=== PATIENT | female | born 1955 | race Caucasian/White ===

== ENCOUNTER → 2016-09-06 | Outpatient (CLI) | payer MEDICARE ==
[~2016-09-06] VITALS: Ht 167.6 cm; Wt 69.1 kg
[~2016-09-06] MED LIST: AMBIEN5 M1 PO; AMBIEN5 MG PO; ASPIR-TRIN325 M1 PO; AUGMENTIN875 MG PO; Ambien PO; CALCIUM + VITA1 EAC2 PO; CALCIUM 600 +1 EAC6 PO; CEFDINIR300 MG PO; CELEBREX200 MG PO; CLEOCIN300 MG PO; CYANOCOBAL1000 MCG/2 IM; Cipro PO; DAILY MULTIPLE1 EACH PO; DESYREL 150 MG150 MG PO; DIGOX250 MCG PO; DIGOXIN125 MCG PO; DOCUSATE SODIU100 MG PO; DURAGESIC100 MCG PO; DURAGESIC100 MCG TD; Duragesic TD; Ecotrin PO; FENTORA PO; FENTORA100 MCG BC; FENTORA400 MCG BC; FERROUS SULFAT325 MG PO; GUMMI BEAR MUL1 EACH PO; HAIR-SKIN-NAIL1 EACH PO; IRON325 M1 PO; K-DUR10 MEQ PO; KEFLEX500 MG PO; LASIX20 MG PO; LEVOTHROID,S0.075 MG PO; LEVOTHYROXINE75 MCG PO; LORAZEPAM0.5 MG PO; LYRICA50 MG PO; LYRICA75 MG PO; Lasix PO; Levothroid,Synthroid PO; MULTIVITAMIN1 EAC2 PO; NUVIGIL250 MG PO; ONE DAILY MULT1 EACH PO; OXYCOD/APAP PO; OYST-CAL-500500 MG PO; PANTOPRAZOLE SO40 MG PO; POTASSIUM CHLO10 ME4 PO; POTASSIUM CHLO20 ME1 PO; PREDNISONE10 MG PO; PREDNISONE20 MG PO; PREDNISONE50 MG PO; PREVACID30 MG PO; Percocet 5/325,Endoc PO; Pyridoxine,Vitamin B PO; ST JOHN S WORT PO; ST. JOSEPH ASPI81 MG PO; SYNTHROID75 MCG PO; TRAMADOL HCL50 MG PO; TRAZODONE HCL50 MG PO; ULTRAM ER100 MG PO; ULTRAM50 MG PO; Ultram PO; VITAMIN B 3 PO; VITAMIN B 6 PO; VITAMIN B IM; VITAMIN B3 PO; VITAMIN E100 UNI1 PO; VITAMIN E100 UNIT PO; VITAMIN E1000 UNI1 PO; Vitamin B-12 PO; ZANTAC150 MG PO; [UNRECOGNIZED DRUG - OTHER] IM; [UNRECOGNIZED DRUG - OTHER] PO; [UNRECOGNIZED DRUG - OTHER] PO
[2016-09-06 19:16] VITALS: BP 95/57
[2016-09-06 21:35] LABS: ANION GAP 7 MEQ/L (2-14); CHLORIDE 100 MEQ/L (99-109); HEMATOCRIT 29.8 % (36.0-46.0); MCV 83.9 FL (83-99); POTASSIUM 4.3 MEQ/L (3.7-5.4); SAMPLE HEMOLYSIS CHECK 0; SAMPLE ICTERIC CHECK 0; SAMPLE LIPEMIA CHECK 0; SODIUM 133 MEQ/L (136-147)
[2016-09-06 21:40] LABS: GFR ESTIMATE (CALCULATED) > 59 mL/min/; GLUCOSE 89 mg/dL (70-99); UREA NITROGEN (BUN) 12 mg/dL (9-23)
== END | disposition home or self-care (01) ==
LOC: IVINF 19:00
PROVIDERS: Family Medicine
DX: E88.09 Other disorders of plasma-protein metabolism, not elsewhere classified (principal); R60.9 Edema, unspecified; Z88.4 Allergy status to anesthetic agent; Z88.1 Allergy status to other antibiotic agents
CPT/HCPCS: 80048; 85014; 85018; 96365; 96374 59; J1940; P9047

== ENCOUNTER 2016-09-30 21:00 | Emergency (ER) | payer MEDICARE ==
[~2016-09-30] VITALS: Ht 170.2 cm; Wt 71.3 kg
[2016-10-01 00:12] LABS: EOSINOPHIL (%) 0.3 % (0-5); HEMATOCRIT 27.1 % (36.0-46.0); IMMATURE GRANULOCYTE (%) 0.3 % (0.0-0.7); IMMATURE GRANULOCYTE COUNT 0.5 K/uL; LYMPHOCYTE COUNT 0.4 K/uL (1.0-2.8); MCH 25.5 PG (29.0-34.0); MCHC 31.4 G/DL (30.0-36.0); MCV 81.4 FL (83-99); MEAN PLAT.VOLUME 8.2 uM^3 (9.5-12.4); MONOCYTE (%) 6.6 % (3-12); NEUTROPHIL (%) 89.8 % (45-76); NEUTROPHIL COUNT 13.4 K/uL (1.8-6.4); PLATELET COUNT 360 K/uL (156-360); RBC DIS.WIDTH-CV 15.9 % (11.8-14.6); RED BLOOD COUNT 3.33 M/uL (3.80-5.20)
[2016-10-01 00:17] LABS: WHITE BLOOD COUNT 14.9 K/uL (4.1-10.2)
[2016-10-01 00:20] LABS: CHLORIDE 100 mEq/L (99-109); POTASSIUM 3.9 mEq/L (3.7-5.4); SODIUM 132 mEq/L (136-147)
[2016-10-01 00:22] LABS: GLUCOSE 104 mg/dL (70-99)
[2016-10-01 00:23] LABS: ANION GAP 7 MEQ/L (2-14)
[2016-10-01 00:26] LABS: GFR ESTIMATE (CALCULATED) > 59 mL/min/; UREA NITROGEN (BUN) 16 mg/dL (9-23)
[2016-10-01 00:35] LABS: ERTH.SED.RATE 49 MM/HR (0-30)
[2016-10-01 01:30] VITALS: BP 106/60
[2016-10-01 01:41] LABS: C-REACTIVE PROTEIN 25.1 MG/L (0-10)
== END 2016-10-01 02:05 ==
LOC: EME 21:00
PROVIDERS: Emergency Medicine
DX: M96.89 Other intraoperative and postprocedural complications and disorders of the musculoskeletal system (principal); L03.115 Cellulitis of right lower limb; Z96.651 Presence of right artificial knee joint
CPT/HCPCS: 80048; 85025; 85651; 86140; 87040; 93971; 99281; 99284

== ENCOUNTER 2017-02-13 19:47 | Inpatient (IN) | payer MEDICARE ==
[~2017-02-13] VITALS: Ht 172.7 cm; Wt 69.1 kg
[2017-02-13 21:09] LABS: HEMATOCRIT 29.7 % (36.0-46.0); MCH 23.8 PG (29.0-34.0); MCHC 31.6 G/DL (30.0-36.0); MCV 75.2 FL (83-99); MEAN PLAT.VOLUME 8.9 uM^3 (9.5-12.4); PLATELET COUNT 349 K/uL (156-360); RBC DIS.WIDTH-CV 19.8 % (11.8-14.6); RBC DIS.WIDTH-SD 52.4 % (39-53); RED BLOOD COUNT 3.95 M/uL (3.80-5.20); WHITE BLOOD COUNT 12.3 K/uL (4.1-10.2)
[2017-02-13 21:17] LABS: CHLORIDE 99 mEq/L (99-109); POTASSIUM 3.9 mEq/L (3.7-5.4); SODIUM 127 mEq/L (136-147)
[2017-02-13 21:19] LABS: GLUCOSE 88 mg/dL (70-99)
[2017-02-13 21:20] LABS: ANION GAP 5 MEQ/L (2-14)
[2017-02-13 21:23] LABS: GFR ESTIMATE (CALCULATED) > 59 mL/min/; UREA NITROGEN (BUN) 12 mg/dL (9-23)
[2017-02-13 21:33] LABS: TROP-I INTERPRETATION POSITIVE; TROPONIN-I 1.02 ng/mL (0.0-0.30)
[2017-02-13 22:59] LABS: INTER. NORMALIZED RATIO 1.6; PROTHROMBIN TIME 16.1 (9.2-11.2); PTT 38.4 (25-32)
[2017-02-14] MEDS ORDERED: ERGOCALCIF50000 UNIT PO (00:38)
[2017-02-14] MEDS ORDERED: SYSTANE BALANCE10 ML BOTH EYES (00:38)
[2017-02-14] MEDS ORDERED: CELEXA20 MG PO (00:39)
[2017-02-14 01:20] VITALS: BP 106/56
[2017-02-14 05:34] VITALS: BP 94/59
[2017-02-14 05:59] LABS: MCH 23.5 PG (29.0-34.0); MCHC 31.3 G/DL (30.0-36.0); PLATELET COUNT 359 K/uL (156-360); RBC DIS.WIDTH-CV 19.8 % (11.8-14.6); WHITE BLOOD COUNT 12.3 K/uL (4.1-10.2)
[2017-02-14 06:21] LABS: TROP-I INTERPRETATION POSITIVE; TROPONIN-I 1.17 ng/mL (0.0-0.30)
[2017-02-14 10:17] VITALS: BP 94/58
[2017-02-14 11:58] VITALS: BP 96/54
[2017-02-14 13:57] LABS: TROP-I INTERPRETATION POSITIVE; TROPONIN-I 0.91 ng/mL (0.0-0.30)
[2017-02-14 15:02] VITALS: BP 97/53
[2017-02-14 18:39] LABS: INTER. NORMALIZED RATIO 1.7; PROTHROMBIN TIME 17.2 (9.2-11.2); PTT 51.3 (25-32)
[2017-02-14 19:01] VITALS: BP 99/56
[2017-02-15] VITALS (7 sets, daily range): BP systolic 84–97; BP diastolic 49–58
[2017-02-15 07:36] LABS: HEMATOCRIT 26.7 % (36.0-46.0); MCH 23.4 PG (29.0-34.0); MCHC 31.5 G/DL (30.0-36.0); MCV 74.4 FL (83-99); PLATELET COUNT 336 K/uL (156-360); RBC DIS.WIDTH-CV 19.4 % (11.8-14.6); RBC DIS.WIDTH-SD 51.1 % (39-53); RED BLOOD COUNT 3.59 M/uL (3.80-5.20); WHITE BLOOD COUNT 7.4 K/uL (4.1-10.2)
[2017-02-15 07:44] LABS: ANION GAP 8 MEQ/L (2-14); CHLORIDE 96 MEQ/L (99-109); GFR ESTIMATE (CALCULATED) > 59 mL/min/; GLUCOSE 85 mg/dL (70-99); POTASSIUM 3.4 MEQ/L (3.7-5.4); SAMPLE HEMOLYSIS CHECK 0; SAMPLE ICTERIC CHECK 0; SAMPLE LIPEMIA CHECK 0; SODIUM 132 MEQ/L (136-147); UREA NITROGEN (BUN) 13 mg/dL (9-23)
[2017-02-15 08:21] LABS: FERRITIN 28 NG/ML (10-291)
[2017-02-16 05:16] VITALS: BP 92/55
[2017-02-16 07:18] LABS: EOSINOPHIL (%) 1.2 % (0-5); EOSINOPHIL COUNT 0.1 K/uL (0-0.3); HEMATOCRIT 27.1 % (36.0-46.0); IMMATURE GRANULOCYTE (%) 1.1 % (0.0-0.7); IMMATURE GRANULOCYTE COUNT 0.1 K/uL; INSTRUMENT ABS NEUTROPHIL CT 4.6 K/uL; LYMPHOCYTE COUNT 0.7 K/uL (1.0-2.8); MCH 23.2 PG (29.0-34.0); MCHC 30.6 G/DL (30.0-36.0); MCV 75.9 FL (83-99); MONOCYTE (%) 17.9 % (3-12); MONOCYTE COUNT 1.2 K/uL (0-0.8); NEUTROPHIL (%) 68.8 % (45-76); NEUTROPHIL COUNT 4.6 K/uL (1.8-6.4); PLATELET COUNT 296 K/uL (156-360); RBC DIS.WIDTH-CV 19.2 % (11.8-14.6); RBC DIS.WIDTH-SD 52.3 % (39-53); RED BLOOD COUNT 3.57 M/uL (3.80-5.20); WHITE BLOOD COUNT 6.6 K/uL (4.1-10.2)
[2017-02-16 08:30] VITALS: BP 91/55
[2017-02-16 12:25] VITALS: BP 91/52
[2017-02-16] MEDS ORDERED: ATORVASTATIN CA40 MG PO (13:58)
[2017-02-16] MEDS ORDERED: ASPIR-LOW81 MG PO (13:58)
[2017-02-16] MEDS ORDERED: CARVEDILOL6.25 MG PO (13:58)
[2017-02-16] MEDS ORDERED: CEFDINIR300 MG PO (14:01)
[2017-02-16 16:50] VITALS: BP 102/59
== END 2017-02-16 18:59 | disposition home health service (06) | DRG 280 ==
LOC: EME 19:47 → EDOF 23:03 → 4EAST 23:03
PROVIDERS: Emergency Medicine; Hospitalist; Internal Medicine
DX: I21.4 Non-ST elevation (NSTEMI) myocardial infarction (principal); I25.111 Atherosclerotic heart disease of native coronary artery with angina pectoris with documented spasm; J18.9 Pneumonia, unspecified organism; E87.1 Hypo-osmolality and hyponatremia; I35.0 Nonrheumatic aortic (valve) stenosis; I50.9 Heart failure, unspecified; I48.2 Chronic atrial fibrillation; D64.9 Anemia, unspecified; L30.9 Dermatitis, unspecified; I89.0 Lymphedema, not elsewhere classified; I87.8 Other specified disorders of veins; I73.00 Raynaud's syndrome without gangrene; E03.9 Hypothyroidism, unspecified; E78.5 Hyperlipidemia, unspecified; K21.9 Gastro-esophageal reflux disease without esophagitis; G62.9 Polyneuropathy, unspecified; M32.9 Systemic lupus erythematosus, unspecified; M19.90 Unspecified osteoarthritis, unspecified site; Z66 Do not resuscitate; Z87.891 Personal history of nicotine dependence; Z82.49 Family history of ischemic heart disease and other diseases of the circulatory system; Z85.51 Personal history of malignant neoplasm of bladder; Z91.81 History of falling; Z98.84 Bariatric surgery status
CPT/HCPCS: 36415; 71020; 71250; 80048; 80048 91; 80069; 80162; 82040; 82272; 82728; 83880; 84443; 84466; 84484; 85025; 85027; 85379; 85610; 85730; 87040; 93005; 93306; 93970; 99281; 99285; J0456; J0696; J1940; J7050

== ENCOUNTER 2017-02-18 14:51 | Inpatient (IN) | payer MEDICARE ==
[~2017-02-18] VITALS: Ht 167.6 cm; Wt 54.5 kg
[~2017-02-18 14:51] MED LIST changes: +ASPIR-LOW81 MG PO; +ATORVASTATIN CA40 MG PO; +CARVEDILOL6.25 MG PO; +CELEXA20 MG PO; +ERGOCALCIF50000 UNIT PO; +SYSTANE BALANCE10 ML BOTH EYES
[2017-02-18 15:11] LABS: MCH 23.8 PG (29.0-34.0); MCHC 31.1 G/DL (30.0-36.0); MCV 76.5 FL (83-99); MEAN PLAT.VOLUME 8.7 uM^3 (9.5-12.4); PLATELET COUNT 348 K/uL (156-360); RBC DIS.WIDTH-CV 19.9 % (11.8-14.6); RBC DIS.WIDTH-SD 52.7 % (39-53); RED BLOOD COUNT 3.66 M/uL (3.80-5.20); WHITE BLOOD COUNT 7.3 K/uL (4.1-10.2)
[2017-02-18 15:19] LABS: CHLORIDE 101 mEq/L (99-109); SODIUM 136 mEq/L (136-147)
[2017-02-18 15:20] LABS: INTER. NORMALIZED RATIO 1.4; PROTHROMBIN TIME 14.1 (9.2-11.2)
[2017-02-18 15:21] LABS: GLUCOSE 89 mg/dL (70-99)
[2017-02-18 15:22] LABS: ANION GAP 7 MEQ/L (2-14)
[2017-02-18 15:25] LABS: GFR ESTIMATE (CALCULATED) > 59 mL/min/; POTASSIUM 4.2 mEq/L (3.7-5.4)
[2017-02-18 15:26] LABS: UREA NITROGEN (BUN) 12 mg/dL (9-23)
[2017-02-18 15:31] LABS: TROP-I INTERPRETATION INDETERMINATE; TROPONIN-I 0.31 ng/mL (0.0-0.30)
[2017-02-18 17:13] LABS: BASE EXCESS 2.9 mEq/L (-3 to +3); BICARBONATE 27.1 mEq/L (22-26); CARBOXY HGB 0 % (0-5); COMMENTS - BLOOD GASES C+; DEVICE VENT; FI02 100 %; MECHANICAL RATE 12 resp/min; METHEMOGLOBIN 0.3 % (0-1.5); MODE AC; PCO2 39 mm Hg (35-45); PO2 452 mm Hg (80-100); SITE LB; TIDAL VOLUME 300 ML; TOTAL RESP RATE 33 resp/min; pH 7.45 (7.35-7.45)
[2017-02-18 17:14] LABS: PEEP 5 CM/H20
[2017-02-18 22:15] VITALS: BP 131/65
[2017-02-18 22:41] VITALS: BP 131/65
[2017-02-18 23:00] VITALS: BP 118/61
[2017-02-18 23:45] LABS: EOSINOPHIL (%) 0.3 % (0-5); HEMATOCRIT 29.6 % (36.0-46.0); IMMATURE GRANULOCYTE (%) 0.8 % (0.0-0.7); IMMATURE GRANULOCYTE COUNT 0.1 K/uL; INSTRUMENT ABS NEUTROPHIL CT 9.2 K/uL; LYMPHOCYTE COUNT 0.9 K/uL (1.0-2.8); MCH 23.5 PG (29.0-34.0); MCHC 30.7 G/DL (30.0-36.0); MCV 76.3 FL (83-99); MEAN PLAT.VOLUME 8.8 uM^3 (9.5-12.4); MONOCYTE (%) 11.2 % (3-12); MONOCYTE COUNT 1.3 K/uL (0-0.8); NEUTROPHIL (%) 79.9 % (45-76); NEUTROPHIL COUNT 9.2 K/uL (1.8-6.4); PLATELET COUNT 392 K/uL (156-360); RBC DIS.WIDTH-SD 52.4 % (39-53); RED BLOOD COUNT 3.88 M/uL (3.80-5.20); WHITE BLOOD COUNT 11.5 K/uL (4.1-10.2)
[2017-02-18 23:49] LABS: METH RESISTANT S AUREUS PCR NEGATIVE (NEGATIVE)
[2017-02-18 23:50] LABS: PROBE CHECK PASS; SPECIMEN PROCESSING CONTROL PASS
[2017-02-18 23:56] LABS: CHLORIDE 101 mEq/L (99-109); SODIUM 138 mEq/L (136-147)
[2017-02-18 23:57] LABS: POTASSIUM 3.3 mEq/L (3.7-5.4)
[2017-02-18 23:58] LABS: GLUCOSE 100 mg/dL (70-99)
[2017-02-18 23:58] LABS: MAGNESIUM 1.7 mg/dL (1.3-2.7)
[2017-02-18 23:59] LABS: ANION GAP 10 MEQ/L (2-14)
[2017-02-19] VITALS (24 sets, daily range): BP systolic 92–125; BP diastolic 38–73
[2017-02-19] LABS: TOTAL BILIRUBIN 0.4 mg/dL (0.0-1.0)
[2017-02-19 00:01] LABS: ALKALINE PHOSPHATASE 167 IU/L (3-129)
[2017-02-19 00:02] LABS: GFR ESTIMATE (CALCULATED) > 59 mL/min/
[2017-02-19 00:03] LABS: UREA NITROGEN (BUN) 12 mg/dL (9-23)
[2017-02-19 00:11] LABS: DIGOXIN 0.9 ng/mL (0.8-2.0)
[2017-02-19 00:37] LABS: CREATINE KINASE 34 IU/L (1-294)
[2017-02-19 01:43] LABS: ADD MIUA? YES; BILIRUBIN NEGATIVE; BLOOD SMALL; COLOR YELLOW ((YELLOW)); GLUCOSE (STRIP) NEGATIVE; KETONES NEGATIVE; LEUKOCYTES NEGATIVE; NITRITE NEGATIVE; PROTEIN (STRIP) NEGATIVE; SPECIFIC GRAVITY 1.011 (1.000-1.030); UROBILINOGEN 0.2 MG/DL (0.2-1.0)
[2017-02-19 01:46] LABS: BACTERIA RARE /HPF; EPITHELIAL CELLS NONE SEEN /HPF; GRANULAR CASTS 0-5 /LPF; HYALINE CASTS 0-5 /LPF; MUCUS TRACE /LPF; RED BLOOD CELLS 15-20 /HPF (0-5); UCUL ADDED? NO; WHITE BLOOD CELLS 0-5 /HPF (0-5)
[2017-02-19 01:47] LABS: TYPE OF FLUID PLEURAL
[2017-02-19 02:16] LABS: TRIGLYCERIDES 75 MG/DL (Normal: <150)
[2017-02-19 02:31] LABS: BODY FLUID RBC'S 42000 /MM^3 (0-100); BODY FLUID WBC'S 190 /MM^3 (0-500)
[2017-02-19 02:39] LABS: BODY FLUID LDH 140 IU/L
[2017-02-19 03:10] LABS: BODY FLUID EOSINOPHILS 0 % (0-25); MONO RAW COUNT 78; MONONUCLEAR WBC'S 78 %; POLY RAW COUNT 22; POLYNUCLEAR WBC'S 22 % (0-25)
[2017-02-19 03:15] LABS: COMMENT MOD MACROPHAGES
[2017-02-19 03:21] LABS: BODY FLUID PROTEIN 0.8 G/DL
[2017-02-19 05:26] LABS: HEMATOCRIT 28.9 % (36.0-46.0); MCH 24.3 PG (29.0-34.0); MCHC 32.2 G/DL (30.0-36.0); MCV 75.7 FL (83-99); PLATELET COUNT 437 K/uL (156-360); RBC DIS.WIDTH-CV 20.3 % (11.8-14.6); RBC DIS.WIDTH-SD 52.4 % (39-53); RED BLOOD COUNT 3.82 M/uL (3.80-5.20); WHITE BLOOD COUNT 10.5 K/uL (4.1-10.2)
[2017-02-19 05:55] LABS: ANION GAP 10 MEQ/L (2-14); CHLORIDE 97 MEQ/L (99-109); CREATINE KINASE 23 IU/L (1-294); GFR ESTIMATE (CALCULATED) > 59 mL/min/; GLUCOSE 95 mg/dL (70-99); MAGNESIUM 2.5 mg/dl (1.3-2.7); POTASSIUM 3.7 MEQ/L (3.7-5.4); SAMPLE HEMOLYSIS CHECK 0; SAMPLE ICTERIC CHECK 0; SAMPLE LIPEMIA CHECK 0; SODIUM 136 MEQ/L (136-147); UREA NITROGEN (BUN) 11 mg/dL (9-23)
[2017-02-20] VITALS (13 sets, daily range): BP systolic 94–116; BP diastolic 47–66
[2017-02-20 04:57] LABS: HEMATOCRIT 32.1 % (36.0-46.0); MCH 23.4 PG (29.0-34.0); MCHC 30.8 G/DL (30.0-36.0); MCV 75.9 FL (83-99); MEAN PLAT.VOLUME 8.7 uM^3 (9.5-12.4); PLATELET COUNT 530 K/uL (156-360); RBC DIS.WIDTH-CV 20.2 % (11.8-14.6); RBC DIS.WIDTH-SD 51.9 % (39-53); RED BLOOD COUNT 4.23 M/uL (3.80-5.20); WHITE BLOOD COUNT 10.3 K/uL (4.1-10.2)
[2017-02-20 05:12] LABS: CHLORIDE 93 mEq/L (99-109); SODIUM 137 mEq/L (136-147)
[2017-02-20 05:14] LABS: GLUCOSE 91 mg/dL (70-99)
[2017-02-20 05:15] LABS: ANION GAP 11 MEQ/L (2-14)
[2017-02-20 05:18] LABS: GFR ESTIMATE (CALCULATED) > 59 mL/min/
[2017-02-20 05:19] LABS: UREA NITROGEN (BUN) 10 mg/dL (9-23)
[2017-02-20 05:20] LABS: CREATINE KINASE 33 IU/L (1-294)
[2017-02-20 05:25] LABS: MAGNESIUM 1.4 mg/dL (1.3-2.7); POTASSIUM 2.9 mEq/L (3.7-5.4)
[2017-02-20 17:07] LABS: ANION GAP 11 MEQ/L (2-14); CHLORIDE 92 MEQ/L (99-109); GFR ESTIMATE (CALCULATED) > 59 mL/min/; GLUCOSE 131 mg/dL (70-99); POTASSIUM 3.1 MEQ/L (3.7-5.4); SAMPLE HEMOLYSIS CHECK 0; SAMPLE ICTERIC CHECK 0; SAMPLE LIPEMIA CHECK 0; SODIUM 134 MEQ/L (136-147); UREA NITROGEN (BUN) 10 mg/dL (9-23)
[2017-02-20 18:27] LABS: CREATINE KINASE 27 IU/L (1-294)
[2017-02-21] VITALS (7 sets, daily range): BP systolic 106–123; BP diastolic 51–62
[2017-02-21 05:30] LABS: HEMATOCRIT 30.7 % (36.0-46.0); MCHC 31.6 G/DL (30.0-36.0); MEAN PLAT.VOLUME 8.8 uM^3 (9.5-12.4); PLATELET COUNT 524 K/uL (156-360); RBC DIS.WIDTH-CV 19.9 % (11.8-14.6); RBC DIS.WIDTH-SD 52.5 % (39-53); RED BLOOD COUNT 4.04 M/uL (3.80-5.20); WHITE BLOOD COUNT 10.2 K/uL (4.1-10.2)
[2017-02-21 06:12] LABS: ANION GAP 9 MEQ/L (2-14); CHLORIDE 92 MEQ/L (99-109); CREATINE KINASE 29 IU/L (1-294); GFR ESTIMATE (CALCULATED) > 59 mL/min/; GLUCOSE 113 mg/dL (70-99); POTASSIUM 2.8 MEQ/L (3.7-5.4); SAMPLE HEMOLYSIS CHECK 0; SAMPLE ICTERIC CHECK 0; SAMPLE LIPEMIA CHECK 0; SODIUM 134 MEQ/L (136-147); UREA NITROGEN (BUN) 9 mg/dL (9-23)
[2017-02-21 06:35] LABS: MAGNESIUM 1.9 mg/dl (1.3-2.7)
[2017-02-21 18:29] LABS: ANION GAP 11 MEQ/L (2-14); CHLORIDE 93 MEQ/L (99-109); CREATINE KINASE 27 IU/L (1-294); GFR ESTIMATE (CALCULATED) > 59 mL/min/; GLUCOSE 103 mg/dL (70-99); MAGNESIUM 1.9 mg/dl (1.3-2.7); SAMPLE HEMOLYSIS CHECK 0; SAMPLE ICTERIC CHECK 0; SAMPLE LIPEMIA CHECK 0; SODIUM 134 MEQ/L (136-147); UREA NITROGEN (BUN) 9 mg/dL (9-23)
[2017-02-22 04:37] LABS: BODY FLUID PH 7.9 (())
[2017-02-22 06:54] LABS: HEMATOCRIT 32.1 % (36.0-46.0); MCH 24.6 PG (29.0-34.0); MCHC 32.4 G/DL (30.0-36.0); MCV 76.1 FL (83-99); MEAN PLAT.VOLUME 8.6 uM^3 (9.5-12.4); PLATELET COUNT 578 K/uL (156-360); RBC DIS.WIDTH-CV 20.6 % (11.8-14.6); RED BLOOD COUNT 4.22 M/uL (3.80-5.20); WHITE BLOOD COUNT 10.2 K/uL (4.1-10.2)
[2017-02-22 07:15] LABS: ANION GAP 11 MEQ/L (2-14); CHLORIDE 96 MEQ/L (99-109); GFR ESTIMATE (CALCULATED) > 59 mL/min/; GLUCOSE 92 mg/dL (70-99); MAGNESIUM 1.9 mg/dl (1.3-2.7); POTASSIUM 3.2 MEQ/L (3.7-5.4); SAMPLE HEMOLYSIS CHECK 0; SAMPLE ICTERIC CHECK 0; SAMPLE LIPEMIA CHECK 0; SODIUM 135 MEQ/L (136-147); UREA NITROGEN (BUN) 10 mg/dL (9-23)
[2017-02-22 07:18] LABS: ALKALINE PHOSPHATASE 129 IU/L (3-129); ANION GAP 10 MEQ/L (2-14); CHLORIDE 96 MEQ/L (99-109); CREATINE KINASE 26 IU/L (1-294); GFR ESTIMATE (CALCULATED) > 59 mL/min/; GLUCOSE 90 mg/dL (70-99); POTASSIUM 3.8 MEQ/L (3.7-5.4); SAMPLE HEMOLYSIS CHECK 0; SAMPLE ICTERIC CHECK 0; SAMPLE LIPEMIA CHECK 0; SODIUM 135 MEQ/L (136-147); TOTAL BILIRUBIN 0.5 MG/DL (0.0-1.0); UREA NITROGEN (BUN) 10 mg/dL (9-23)
[2017-02-22 08:05] LABS: EOSINOPHIL COUNT 0.1 K/uL (0-0.3); IMMATURE GRANULOCYTE (%) 0.6 % (0.0-0.7); IMMATURE GRANULOCYTE COUNT 0.1 K/uL; INSTRUMENT ABS NEUTROPHIL CT 6.7 K/uL; LYMPHOCYTE COUNT 1.4 K/uL (1.0-2.8); MONOCYTE (%) 18.8 % (3-12); MONOCYTE COUNT 1.9 K/uL (0-0.8); NEUTROPHIL (%) 65.4 % (45-76); NEUTROPHIL COUNT 6.7 K/uL (1.8-6.4)
[2017-02-22 08:10] VITALS: BP 113/67
[2017-02-22 15:57] VITALS: BP 105/60
[2017-02-22 23:51] VITALS: BP 102/62
[2017-02-23 05:58] LABS: BASOPHIL COUNT 0.1 K/uL (0-0.1); EOSINOPHIL (%) 0.9 % (0-5); EOSINOPHIL COUNT 0.1 K/uL (0-0.3); HEMATOCRIT 33.7 % (36.0-46.0); IMMATURE GRANULOCYTE (%) 0.5 % (0.0-0.7); IMMATURE GRANULOCYTE COUNT 0.1 K/uL; INSTRUMENT ABS NEUTROPHIL CT 7.2 K/uL; LYMPHOCYTE COUNT 1.8 K/uL (1.0-2.8); MCH 24.3 PG (29.0-34.0); MCHC 31.8 G/DL (30.0-36.0); MCV 76.4 FL (83-99); MEAN PLAT.VOLUME 8.6 uM^3 (9.5-12.4); MONOCYTE (%) 16.6 % (3-12); MONOCYTE COUNT 1.8 K/uL (0-0.8); NEUTROPHIL (%) 65.4 % (45-76); NEUTROPHIL COUNT 7.2 K/uL (1.8-6.4); PLATELET COUNT 578 K/uL (156-360); RBC DIS.WIDTH-CV 20.8 % (11.8-14.6); RBC DIS.WIDTH-SD 55.6 % (39-53); RED BLOOD COUNT 4.41 M/uL (3.80-5.20)
[2017-02-23 06:29] LABS: ANION GAP 10 MEQ/L (2-14); CHLORIDE 98 MEQ/L (99-109); CREATINE KINASE 21 IU/L (1-294); GFR ESTIMATE (CALCULATED) > 59 mL/min/; GLUCOSE 96 mg/dL (70-99); MAGNESIUM 2.1 mg/dl (1.3-2.7); POTASSIUM 3.9 MEQ/L (3.7-5.4); SAMPLE HEMOLYSIS CHECK 0; SAMPLE ICTERIC CHECK 0; SAMPLE LIPEMIA CHECK 0; SODIUM 134 MEQ/L (136-147); UREA NITROGEN (BUN) 13 mg/dL (9-23)
[2017-02-23 08:06] VITALS: BP 117/65
[2017-02-23 16:00] VITALS: BP 124/68
[2017-02-24 00:07] VITALS: BP 133/71
[2017-02-24 05:31] LABS: HEMATOCRIT 33.9 % (36.0-46.0); MCH 24.1 PG (29.0-34.0); MCHC 31.9 G/DL (30.0-36.0); MCV 75.5 FL (83-99); MEAN PLAT.VOLUME 8.3 uM^3 (9.5-12.4); PLATELET COUNT 570 K/uL (156-360); RBC DIS.WIDTH-CV 19.9 % (11.8-14.6); RBC DIS.WIDTH-SD 54.2 % (39-53); RED BLOOD COUNT 4.49 M/uL (3.80-5.20); WHITE BLOOD COUNT 11.5 K/uL (4.1-10.2)
[2017-02-24 06:34] LABS: ANION GAP 9 MEQ/L (2-14); CHLORIDE 97 MEQ/L (99-109); CREATINE KINASE 24 IU/L (1-294); GFR ESTIMATE (CALCULATED) > 59 mL/min/; GLUCOSE 99 mg/dL (70-99); MAGNESIUM 2.2 mg/dl (1.3-2.7); POTASSIUM 3.3 MEQ/L (3.7-5.4); SAMPLE HEMOLYSIS CHECK 0; SAMPLE ICTERIC CHECK 0; SAMPLE LIPEMIA CHECK 0; SODIUM 131 MEQ/L (136-147); UREA NITROGEN (BUN) 15 mg/dL (9-23)
[2017-02-24 08:26] VITALS: BP 99/66
[2017-02-24 15:57] VITALS: BP 117/59
[2017-02-24 23:46] VITALS: BP 119/67
[2017-02-25 05:48] LABS: HEMATOCRIT 33.1 % (36.0-46.0); MCH 24.1 PG (29.0-34.0); MCHC 31.7 G/DL (30.0-36.0); MCV 75.9 FL (83-99); MEAN PLAT.VOLUME 8.7 uM^3 (9.5-12.4); PLATELET COUNT 617 K/uL (156-360); RBC DIS.WIDTH-CV 19.6 % (11.8-14.6); RBC DIS.WIDTH-SD 53.1 % (39-53); RED BLOOD COUNT 4.36 M/uL (3.80-5.20); WHITE BLOOD COUNT 12.2 K/uL (4.1-10.2)
[2017-02-25 06:16] LABS: ANION GAP 10 MEQ/L (2-14); CHLORIDE 98 MEQ/L (99-109); CREATINE KINASE 25 IU/L (1-294); GFR ESTIMATE (CALCULATED) > 59 mL/min/; GLUCOSE 96 mg/dL (70-99); MAGNESIUM 2.1 mg/dl (1.3-2.7); POTASSIUM 3.2 MEQ/L (3.7-5.4); SAMPLE HEMOLYSIS CHECK 0; SAMPLE ICTERIC CHECK 0; SAMPLE LIPEMIA CHECK 0; SODIUM 131 MEQ/L (136-147); UREA NITROGEN (BUN) 13 mg/dL (9-23)
[2017-02-25 07:42] VITALS: BP 119/62
[2017-02-25 15:05] VITALS: BP 111/70
[2017-02-26 07:50] LABS: ANION GAP 9 MEQ/L (2-14); CHLORIDE 96 MEQ/L (99-109); GFR ESTIMATE (CALCULATED) 54 mL/min/; GLUCOSE 84 mg/dL (70-99); SAMPLE HEMOLYSIS CHECK 0; SAMPLE ICTERIC CHECK 0; SAMPLE LIPEMIA CHECK 0; SODIUM 129 MEQ/L (136-147); UREA NITROGEN (BUN) 17 mg/dL (9-23)
[2017-02-26 08:02] VITALS: BP 102/64
[2017-02-26 08:09] LABS: BASOPHIL COUNT 0.1 K/uL (0-0.1); EOSINOPHIL (%) 2.2 % (0-5); EOSINOPHIL COUNT 0.3 K/uL (0-0.3); HEMATOCRIT 35.8 % (36.0-46.0); IMMATURE GRANULOCYTE (%) 0.4 % (0.0-0.7); IMMATURE GRANULOCYTE COUNT 0.1 K/uL; INSTRUMENT ABS NEUTROPHIL CT 9.2 K/uL; LYMPHOCYTE COUNT 1.8 K/uL (1.0-2.8); MCHC 30.7 G/DL (30.0-36.0); MCV 78.2 FL (83-99); MEAN PLAT.VOLUME 8.9 uM^3 (9.5-12.4); NEUTROPHIL (%) 68.3 % (45-76); NEUTROPHIL COUNT 9.2 K/uL (1.8-6.4); PLATELET COUNT 696 K/uL (156-360); RBC DIS.WIDTH-CV 19.5 % (11.8-14.6); RBC DIS.WIDTH-SD 54.3 % (39-53); RED BLOOD COUNT 4.58 M/uL (3.80-5.20); WHITE BLOOD COUNT 13.4 K/uL (4.1-10.2)
[2017-02-26] MEDS ORDERED: LORAZEPAM0.5 MG PO (11:16)
[2017-02-26] MEDS ORDERED: K-DUR20 MEQ PO (11:16)
[2017-02-26] MEDS ORDERED: ULTRAM50 MG PO (11:18)
[2017-03-05] MEDS ORDERED: IRON325 MG PO (16:37)
[2017-03-05] MEDS ORDERED: ASCORBIC ACID500 M3 PO (16:37)
== END 2017-02-26 15:03 | DRG 208 ==
LOC: EME 14:51 → EDOF 17:28 → 4WEST 17:28 → 5SOUTH 02-21 19:39
PROVIDERS: Emergency Medicine; Hospitalist; Internal Medicine; Internal Medicine Critical Care Medicine
PROC: 5A1935Z Respiratory Ventilation, Less than 24 Consecutive Hours (ICD-10-PCS; principal; 2017-02-18)
PROC: 0BH17EZ Insertion of Endotracheal Airway into Trachea, Via Natural or Artificial Opening (ICD-10-PCS; principal; 2017-02-18)
PROC: 0W9930Z Drainage of Right Pleural Cavity with Drainage Device, Percutaneous Approach (ICD-10-PCS; principal; 2017-02-18)
DX: J18.9 Pneumonia, unspecified organism (principal); I50.9 Heart failure, unspecified; I21.4 Non-ST elevation (NSTEMI) myocardial infarction; J96.01 Acute respiratory failure with hypoxia; G89.29 Other chronic pain; E03.9 Hypothyroidism, unspecified; I73.00 Raynaud's syndrome without gangrene; D64.9 Anemia, unspecified; I48.91 Unspecified atrial fibrillation; Z85.51 Personal history of malignant neoplasm of bladder; I25.2 Old myocardial infarction; Z98.84 Bariatric surgery status; Z87.891 Personal history of nicotine dependence; Z88.1 Allergy status to other antibiotic agents; Z88.0 Allergy status to penicillin; Z91.048 Other nonmedicinal substance allergy status; E87.6 Hypokalemia; J94.8 Other specified pleural conditions
CPT/HCPCS: 36600; 71010; 71020; 80048; 80048 91; 80053; 80162; 81003; 82550; 82550 91; 82803; 83605; 83615 91; 83735; 83880; 83986 90; 84100; 84157; 84478; 84484; 85025; 85027; 85610; 87040; 87070; 87075; 87205; 87641; 88108; 88305; 89051; 90832; 92526 GN; 92610 GN; 93005; 94002; 94003; 94640; 94640 76; 94799; 97530 GO; 97530 GP; 99202; 99281; 99285; J0330; J1650; J1940; J2250; J2310; J2543; J2704; J3010; J3370; J3475; J3480; J7050

== ENCOUNTER 2017-03-08 09:58 | Day surgery (SDC) | payer MEDICARE ==
[~2017-03-08] VITALS: Ht 170.2 cm; Wt 48.5 kg
[~2017-03-08 09:58] MED LIST changes: +ASCORBIC ACID500 M3 PO; +IRON325 MG PO; +K-DUR20 MEQ PO
[2017-03-08 12:03] LABS: METH RESISTANT S AUREUS PCR NEGATIVE (NEGATIVE)
[2017-03-08 12:07] LABS: PROBE CHECK PASS; SPECIMEN PROCESSING CONTROL PASS
== END 2017-03-08 18:00 ==
LOC: CATH 09:58
PROVIDERS: Internal Medicine Cardiovascular Disease
DX: R79.89 Other specified abnormal findings of blood chemistry (principal); L93.0 Discoid lupus erythematosus; I48.91 Unspecified atrial fibrillation; R06.02 Shortness of breath; I73.00 Raynaud's syndrome without gangrene; M25.562 Pain in left knee; M25.561 Pain in right knee; Z98.84 Bariatric surgery status; Z85.51 Personal history of malignant neoplasm of bladder; Z90.710 Acquired absence of both cervix and uterus
CPT/HCPCS: 87641; C1769; C1887; C1894; J0461; J1644; J2250; J3010

== ENCOUNTER 2017-06-04 13:42 | Emergency (ER) | payer MEDICARE ==
[~2017-06-04] VITALS: Ht 175.3 cm; Wt 61.3 kg
[~2017-06-04 13:42] MED LIST changes: +EYEDROPS BOTH EYES
[2017-06-04 14:57] LABS: HEMATOCRIT 29.1 % (36.0-46.0); MCH 24.7 PG (29.0-34.0); MCHC 30.9 G/DL (30.0-36.0); MCV 79.9 FL (83-99); MEAN PLAT.VOLUME 8.8 uM^3 (9.5-12.4); PLATELET COUNT 271 K/uL (156-360); RBC DIS.WIDTH-CV 19.6 % (11.8-14.6); RBC DIS.WIDTH-SD 56.4 % (39-53); RED BLOOD COUNT 3.64 M/uL (3.80-5.20)
[2017-06-04 15:08] LABS: CHLORIDE 104 mEq/L (99-109); SODIUM 133 mEq/L (136-147)
[2017-06-04 15:10] LABS: GLUCOSE 98 mg/dL (70-99)
[2017-06-04 15:11] LABS: ANION GAP 9 MEQ/L (2-14)
[2017-06-04 15:14] LABS: GFR ESTIMATE (CALCULATED) > 59 mL/min/
[2017-06-04 15:15] LABS: UREA NITROGEN (BUN) 10 mg/dL (9-23)
[2017-06-04 18:04] LABS: TROP-I INTERPRETATION NEGATIVE; TROPONIN-I 0.02 ng/mL (0.0-0.30)
[2017-06-04] MEDS ORDERED: ZITHROMAX Z-PA250 MG PO (20:19)
[2017-06-04 20:38] VITALS: BP 120/74
== END 2017-06-04 20:40 | disposition home or self-care (01) ==
LOC: EME 13:42
DX: R06.00 Dyspnea, unspecified (principal); D64.9 Anemia, unspecified; G89.29 Other chronic pain; M48.54XA Collapsed vertebra, not elsewhere classified, thoracic region, initial encounter for fracture; J90 Pleural effusion, not elsewhere classified; Z88.1 Allergy status to other antibiotic agents; Z98.84 Bariatric surgery status; Z87.891 Personal history of nicotine dependence
CPT/HCPCS: 71020; 71260; 80048; 83880; 84484; 85027; 93005; 99281; 99285; J3010; J7030

== ENCOUNTER 2017-10-18 16:49 | Observation (INO) | payer MEDICARE ==
[~2017-10-18] VITALS: Ht 167.6 cm; Wt 65.3 kg
[~2017-10-18 16:49] MED LIST changes: -CELEXA20 MG PO; +CELEXA40 MG PO; +ELIQUIS5 MG PO; -EYEDROPS BOTH EYES; +RESTASIS MULTI5.5 ML BOTH EYES; +ZITHROMAX Z-PA250 MG PO
[2017-10-18 17:20] LABS: BASOPHIL (%) 0.4 % (0-1); EOSINOPHIL COUNT 0.2 K/uL (0-0.3); HEMATOCRIT 26.4 % (36.0-46.0); IMMATURE GRANULOCYTE (%) 0.4 % (0.0-0.7); LYMPHOCYTE (%) 14.3 % (15-42); LYMPHOCYTE COUNT 0.8 K/uL (1.0-2.8); MCH 23.6 PG (29.0-34.0); MCHC 30.3 G/DL (30.0-36.0); MCV 77.9 FL (83-99); MONOCYTE (%) 16.1 % (3-12); MONOCYTE COUNT 0.9 K/uL (0-0.8); NEUTROPHIL (%) 65.8 % (45-76); NEUTROPHIL COUNT 3.7 K/uL (1.8-6.4); PLATELET COUNT 259 K/uL (156-360); RBC DIS.WIDTH-CV 19.9 % (11.8-14.6); RBC DIS.WIDTH-SD 55.4 % (39-53); RED BLOOD COUNT 3.39 M/uL (3.80-5.20); WHITE BLOOD COUNT 5.7 K/uL (4.1-10.2)
[2017-10-18 17:35] LABS: ALBUMIN 3.2 g/dL (3.2-4.8); CHLORIDE 104 mEq/L (99-109); POTASSIUM 3.7 mEq/L (3.7-5.4); SODIUM 137 mEq/L (136-147)
[2017-10-18 17:38] LABS: GLUCOSE 82 mg/dL (70-99); TOTAL PROTEIN 7.1 g/dL (6.4-8.3)
[2017-10-18 17:40] LABS: TOTAL BILIRUBIN 0.4 mg/dL (0.0-1.0)
[2017-10-18 17:41] LABS: ALKALINE PHOSPHATASE 165 IU/L (3-129); CREATININE 0.8 mg/dL (0.6-1.3); GFR ESTIMATE (CALCULATED) > 59 mL/min/
[2017-10-18 17:43] LABS: AST (GOT) 19 IU/L (2-34); UREA NITROGEN (BUN) 11 mg/dL (9-23)
[2017-10-18 17:44] LABS: ALT (GPT) 8 IU/L (3-49)
[2017-10-18 21:29] LABS: APPEARANCE CLEAR ((CLEAR)); BILIRUBIN NEGATIVE; BLOOD SMALL; COLOR YELLOW ((YELLOW)); GLUCOSE (STRIP) NEGATIVE; KETONES NEGATIVE; LEUKOCYTES TRACE; NITRITE NEGATIVE; PROTEIN (STRIP) NEGATIVE; SPECIFIC GRAVITY 1.013 (1.000-1.030)
[2017-10-18] MEDS ORDERED: K-DUR20 MEQ PO (21:58)
[2017-10-18] MEDS ORDERED: LASIX20 MG PO (21:58)
[2017-10-18] MEDS ORDERED: COREG6.25 M1 PO (21:59)
[2017-10-18] MEDS ORDERED: ERGOCALCIF50000 UNIT PO (22:00)
[2017-10-18 22:23] LABS: BACTERIA RARE /HPF; EPITHELIAL CELLS 1+ /HPF; HYALINE CASTS 0-5 /LPF; MUCUS TRACE /LPF; UCUL ADDED? NO; WHITE BLOOD CELLS 0-5 /HPF (0-5)
[2017-10-18 22:59] VITALS: BP 116/63
[2017-10-19] VITALS (9 sets, daily range): BP systolic 110–127; BP diastolic 57–68
[2017-10-19 00:38] LABS: HEMATOCRIT 25.1 % (36.0-46.0); HEMOGLOBIN 7.7 G/DL (11.9-15.5); MCV 77.7 FL (83-99)
[2017-10-19 09:17] LABS: HEMATOCRIT 25.8 % (36.0-46.0); HEMOGLOBIN 7.7 G/DL (11.9-15.5); MCV 79.1 FL (83-99)
[2017-10-19 16:06] LABS: HEMATOCRIT 31.4 % (36.0-46.0); HEMOGLOBIN 9.2 G/DL (11.9-15.5); MCV 79.9 FL (83-99)
[2017-10-20 00:09] VITALS: BP 100/59
[2017-10-20 04:12] VITALS: BP 87/52
[2017-10-20 05:34] LABS: HEMATOCRIT 29.4 % (36.0-46.0); HEMOGLOBIN 8.6 G/DL (11.9-15.5); MCV 80.8 FL (83-99)
[2017-10-20 07:57] VITALS: BP 92/50
[2017-10-20 12:42] VITALS: BP 96/5
[2017-10-20 13:00] LABS: HEMOGLOBIN 8.8 G/DL (11.9-15.5); MCV 80.6 FL (83-99)
== END 2017-10-20 16:06 | disposition home or self-care (01) ==
LOC: EME 16:49 → EDOF 21:19 → 5WEST 21:19 → EDOF 21:19 → ENRESERV 21:27 → 5WEST 22:40
PROVIDERS: Internal Medicine; Nurse Practitioner Adult Health; Physician Assistant; Physician Assistant Medical
PROC: 30233N1 Transfusion of Nonautologous Red Blood Cells into Peripheral Vein, Percutaneous Approach (ICD-10-PCS; principal; 2017-10-18)
DX: D64.9 Anemia, unspecified (principal); R19.5 Other fecal abnormalities; I27.20 Pulmonary hypertension, unspecified; I08.2 Rheumatic disorders of both aortic and tricuspid valves; M41.9 Scoliosis, unspecified; Z79.891 Long term (current) use of opiate analgesic; M32.9 Systemic lupus erythematosus, unspecified; M06.9 Rheumatoid arthritis, unspecified; G89.29 Other chronic pain; Z85.51 Personal history of malignant neoplasm of bladder; E03.9 Hypothyroidism, unspecified; I48.91 Unspecified atrial fibrillation; I25.10 Atherosclerotic heart disease of native coronary artery without angina pectoris; I25.2 Old myocardial infarction; I73.00 Raynaud's syndrome without gangrene; Z87.01 Personal history of pneumonia (recurrent); I87.8 Other specified disorders of veins; R60.0 Localized edema; I89.0 Lymphedema, not elsewhere classified; Z98.84 Bariatric surgery status; Z87.891 Personal history of nicotine dependence; Z91.048 Other nonmedicinal substance allergy status; F41.9 Anxiety disorder, unspecified; Z90.710 Acquired absence of both cervix and uterus; Z96.653 Presence of artificial knee joint, bilateral; Z88.1 Allergy status to other antibiotic agents; Z88.5 Allergy status to narcotic agent; Z66 Do not resuscitate
CPT/HCPCS: 70450; 71046; 80053; 81003; 83880; 84443; 85014; 85018; 85025; 86850; 86900; 86901; 86920; 93005; 93306; 94640; 94760; 94799; 99202; 99281; 99285; C9113; G0378; G8978 GP CJ; G8979 GP CI; J1200; J2060; J2270; J7030; P9016

== ENCOUNTER 2018-02-12 03:56 | Inpatient (IN) | payer MEDICARE, OTHER ==
[~2018-02-12] VITALS: Ht 167.6 cm; Wt 57.7 kg
[2018-02-12] VITALS (10 sets, daily range): BP systolic 106–120; BP diastolic 53–71
[~2018-02-12 03:56] MED LIST changes: +COREG6.25 M1 PO; -RESTASIS MULTI5.5 ML BOTH EYES
[2018-02-12 05:46] LABS: CHLORIDE 98 mEq/L (99-109); POTASSIUM 3.7 mEq/L (3.7-5.4); SODIUM 136 mEq/L (136-147)
[2018-02-12 05:47] LABS: BASOPHIL (%) 0.3 % (0-1); EOSINOPHIL (%) 2.1 % (0-5); EOSINOPHIL COUNT 0.2 K/uL (0-0.3); HEMATOCRIT 21.8 % (36.0-46.0); HEMOGLOBIN 6.8 G/DL (11.9-15.5); IMMATURE GRANULOCYTE (%) 0.4 % (0.0-0.7); LYMPHOCYTE (%) 10.8 % (15-42); LYMPHOCYTE COUNT 0.8 K/uL (1.0-2.8); MCH 23.6 PG (29.0-34.0); MCHC 31.2 G/DL (30.0-36.0); MCV 75.7 FL (83-99); MONOCYTE (%) 13.4 % (3-12); NEUTROPHIL COUNT 5.7 K/uL (1.8-6.4); PLATELET COUNT 240 K/uL (156-360); RBC DIS.WIDTH-CV 14.7 % (11.8-14.6); RBC DIS.WIDTH-SD 40.7 % (39-53); RED BLOOD COUNT 2.88 M/uL (3.80-5.20); WHITE BLOOD COUNT 7.8 K/uL (4.1-10.2)
[2018-02-12 05:49] LABS: GLUCOSE 98 mg/dL (70-99); TOTAL PROTEIN 6.7 g/dL (6.4-8.3)
[2018-02-12 05:51] LABS: TOTAL BILIRUBIN 0.2 mg/dL (0.0-1.0)
[2018-02-12 05:52] LABS: ALKALINE PHOSPHATASE 141 IU/L (3-129); GFR ESTIMATE (CALCULATED) > 59 mL/min/
[2018-02-12 05:53] LABS: UREA NITROGEN (BUN) 29 mg/dL (9-23)
[2018-02-12 05:54] LABS: AST (GOT) 21 IU/L (2-34)
[2018-02-12 05:55] LABS: ALT (GPT) 13 IU/L (3-49)
[2018-02-12 06:41] LABS: APPEARANCE CLEAR ((CLEAR)); BILIRUBIN NEGATIVE; BLOOD NEGATIVE; COLOR YELLOW ((YELLOW)); GLUCOSE (STRIP) NEGATIVE; KETONES NEGATIVE; LEUKOCYTES NEGATIVE; NITRITE NEGATIVE; PROTEIN (STRIP) NEGATIVE; SPECIFIC GRAVITY 1.014 (1.000-1.030); UCUL ADDED? NO; UROBILINOGEN 0.2 MG/DL (0.2-1.0)
[2018-02-12 08:30] LABS: INTER. NORMALIZED RATIO 1.6
[2018-02-12 08:32] LABS: PTT 31.1 SEC (25-37)
[2018-02-12] MEDS ORDERED: VITAMIN E1000 UNI1 PO (08:39)
[2018-02-12 16:00] LABS: HEMOGLOBIN 9.2 G/DL (11.9-15.5); MCV 77.1 FL (83-99)
[2018-02-13] VITALS (15 sets, daily range): BP systolic 95–122; BP diastolic 52–70
[2018-02-13 06:23] LABS: HEMATOCRIT 26.1 % (36.0-46.0); HEMOGLOBIN 8.4 G/DL (11.9-15.5); MCH 24.7 PG (29.0-34.0); MCHC 32.2 G/DL (30.0-36.0); MCV 76.8 FL (83-99); PLATELET COUNT 238 K/uL (156-360); RBC DIS.WIDTH-CV 15.9 % (11.8-14.6); WHITE BLOOD COUNT 8.2 K/uL (4.1-10.2)
[2018-02-13 06:36] LABS: CHLORIDE 101 MEQ/L (99-109); CREATININE 0.7 MG/DL (0.6-1.3); GFR ESTIMATE (CALCULATED) > 59 mL/min/; GLUCOSE 99 mg/dL (70-99); SODIUM 139 MEQ/L (136-147); UREA NITROGEN (BUN) 13 mg/dL (9-23)
[2018-02-13 06:41] LABS: POTASSIUM 2.9 MEQ/L (3.7-5.4)
[2018-02-13 09:22] LABS: INTER. NORMALIZED RATIO 2.8
[2018-02-13 12:36] LABS: INTER. NORMALIZED RATIO 2.9
[2018-02-13 16:20] LABS: INTER. NORMALIZED RATIO 3.2
[2018-02-13 18:18] LABS: INTER. NORMALIZED RATIO 2.3
[2018-02-13 18:21] LABS: PTT 32.4 SEC (25-37)
[2018-02-13 21:01] LABS: INTER. NORMALIZED RATIO 2.1
[2018-02-13 21:04] LABS: PTT 31.4 SEC (25-37)
[2018-02-13 23:15] LABS: FIBRINOGEN 374 mg/dL (150-450)
[2018-02-14] VITALS (9 sets, daily range): BP systolic 89–123; BP diastolic 53–64
[2018-02-14 05:30] LABS: BASOPHIL (%) 0.3 % (0-1); EOSINOPHIL (%) 1.3 % (0-5); EOSINOPHIL COUNT 0.1 K/uL (0-0.3); HEMATOCRIT 24.2 % (36.0-46.0); HEMOGLOBIN 7.6 G/DL (11.9-15.5); IMMATURE GRANULOCYTE (%) 0.3 % (0.0-0.7); LYMPHOCYTE COUNT 0.9 K/uL (1.0-2.8); MCH 24.8 PG (29.0-34.0); MCHC 31.4 G/DL (30.0-36.0); MCV 78.8 FL (83-99); MONOCYTE (%) 16.2 % (3-12); MONOCYTE COUNT 1.1 K/uL (0-0.8); NEUTROPHIL (%) 68.9 % (45-76); NEUTROPHIL COUNT 4.8 K/uL (1.8-6.4); PLATELET COUNT 211 K/uL (156-360); RBC DIS.WIDTH-CV 16.4 % (11.8-14.6); RBC DIS.WIDTH-SD 46.1 % (39-53); RED BLOOD COUNT 3.07 M/uL (3.80-5.20)
[2018-02-14 06:04] LABS: CHLORIDE 101 MEQ/L (99-109); CREATININE 0.7 MG/DL (0.6-1.3); GFR ESTIMATE (CALCULATED) > 59 mL/min/; GLUCOSE 106 mg/dL (70-99); SODIUM 137 MEQ/L (136-147); UREA NITROGEN (BUN) 10 mg/dL (9-23)
[2018-02-14 06:06] LABS: POTASSIUM 4.2 MEQ/L (3.7-5.4)
[2018-02-14 10:29] LABS: HEMATOCRIT 27.8 % (36.0-46.0); HEMOGLOBIN 8.7 G/DL (11.9-15.5); MCHC 31.3 G/DL (30.0-36.0); MCV 79.9 FL (83-99); PLATELET COUNT 202 K/uL (156-360); RBC DIS.WIDTH-CV 16.5 % (11.8-14.6); RBC DIS.WIDTH-SD 47.3 % (39-53); RED BLOOD COUNT 3.48 M/uL (3.80-5.20); WHITE BLOOD COUNT 8.1 K/uL (4.1-10.2)
[2018-02-14 11:47] LABS: HEMATOCRIT 27.7 % (36.0-46.0); HEMOGLOBIN 8.6 G/DL (11.9-15.5); INTER. NORMALIZED RATIO 1.5; MCV 80.1 FL (83-99)
[2018-02-14 13:26] LABS: STOOL OCCULT BLD 1ST SPECIMEN POSITIVE
[2018-02-15] VITALS (12 sets, daily range): BP systolic 92–125; BP diastolic 52–85
[2018-02-15 06:23] LABS: BASOPHIL (%) 0.3 % (0-1); EOSINOPHIL COUNT 0.1 K/uL (0-0.3); HEMATOCRIT 23.3 % (36.0-46.0); HEMOGLOBIN 7.1 G/DL (11.9-15.5); IMMATURE GRANULOCYTE (%) 0.5 % (0.0-0.7); LYMPHOCYTE (%) 7.3 % (15-42); LYMPHOCYTE COUNT 0.4 K/uL (1.0-2.8); MCHC 30.5 G/DL (30.0-36.0); MONOCYTE COUNT 0.8 K/uL (0-0.8); NEUTROPHIL (%) 77.9 % (45-76); NEUTROPHIL COUNT 4.7 K/uL (1.8-6.4); RBC DIS.WIDTH-CV 16.6 % (11.8-14.6); RBC DIS.WIDTH-SD 49.1 % (39-53); RED BLOOD COUNT 2.84 M/uL (3.80-5.20)
[2018-02-15 06:25] LABS: INTER. NORMALIZED RATIO 1.3
[2018-02-15 06:28] LABS: PTT 29.3 SEC (25-37)
[2018-02-15 06:41] LABS: CHLORIDE 105 MEQ/L (99-109); CREATININE 0.7 MG/DL (0.6-1.3); GFR ESTIMATE (CALCULATED) > 59 mL/min/; GLUCOSE 119 mg/dL (70-99); POTASSIUM 3.6 MEQ/L (3.7-5.4); SODIUM 140 MEQ/L (136-147); UREA NITROGEN (BUN) 10 mg/dL (9-23)
[2018-02-15 06:42] LABS: ALBUMIN 2.4 G/DL (3.2-4.8); ALKALINE PHOSPHATASE 91 IU/L (3-129); ALT (GPT) 11 IU/L (3-49); AST (GOT) 18 IU/L (2-34); CHLORIDE 105 MEQ/L (99-109); CREATININE 0.7 MG/DL (0.6-1.3); GFR ESTIMATE (CALCULATED) > 59 mL/min/; GLUCOSE 117 mg/dL (70-99); POTASSIUM 3.5 MEQ/L (3.7-5.4); SODIUM 141 MEQ/L (136-147); TOTAL BILIRUBIN 0.5 MG/DL (0.0-1.0); TOTAL PROTEIN 5.3 G/DL (6.4-8.3); UREA NITROGEN (BUN) 10 mg/dL (9-23)
[2018-02-15 06:49] LABS: PLAT.SUFFICIENCY DECREASED
[2018-02-15 06:57] LABS: PLATELET COUNT 137 K/uL (156-360)
[2018-02-16 03:17] VITALS: BP 112/62
[2018-02-16 06:59] LABS: HEMATOCRIT 25.8 % (36.0-46.0); HEMOGLOBIN 7.9 G/DL (11.9-15.5)
[2018-02-16 07:38] VITALS: BP 98/63
[2018-02-16 11:33] VITALS: BP 95/54
[2018-02-16] MEDS ORDERED: CARVEDILOL3.125 MG PO (12:52)
[2018-02-16] MEDS ORDERED: LORAZEPAM0.5 MG PO (12:54)
[2018-02-16] MEDS ORDERED: LASIX20 MG PO (12:54)
[2018-02-16] MEDS ORDERED: DURAGESIC100 MCG TD (12:54)
[2018-02-16] MEDS ORDERED: PERCOCET 10/1 TABLET PO (12:56)
[2018-02-16] MEDS ORDERED: CYCLOBENZAPRINE5 MG PO (12:56)
[2018-02-16] MEDS ORDERED: COLACE100 MG PO (12:57)
[2018-02-16] MEDS ORDERED: MIRALAX17 GM PO (12:57)
[2018-02-16 16:58] VITALS: BP 93/61
[2018-02-17] VITALS (7 sets, daily range): BP systolic 87–102; BP diastolic 57–67
[2018-02-17 06:13] LABS: HEMATOCRIT 25.2 % (36.0-46.0); HEMOGLOBIN 7.8 G/DL (11.9-15.5); MCH 25.6 PG (29.0-34.0); MCV 82.6 FL (83-99); PLATELET COUNT 161 K/uL (156-360); RBC DIS.WIDTH-CV 17.5 % (11.8-14.6); RED BLOOD COUNT 3.05 M/uL (3.80-5.20); WHITE BLOOD COUNT 7.5 K/uL (4.1-10.2)
[2018-02-17 06:37] LABS: CHLORIDE 104 MEQ/L (99-109); CREATININE 0.7 MG/DL (0.6-1.3); GFR ESTIMATE (CALCULATED) > 59 mL/min/; GLUCOSE 97 mg/dL (70-99); SODIUM 137 MEQ/L (136-147); UREA NITROGEN (BUN) 12 mg/dL (9-23)
[2018-02-17 06:40] LABS: POTASSIUM 4.3 MEQ/L (3.7-5.4)
[2018-02-18] VITALS (8 sets, daily range): BP systolic 94–122; BP diastolic 55–79
[2018-02-18 07:15] LABS: HEMATOCRIT 28.1 % (36.0-46.0); HEMOGLOBIN 8.5 G/DL (11.9-15.5); MCH 25.4 PG (29.0-34.0); MCHC 30.2 G/DL (30.0-36.0); MCV 83.9 FL (83-99); PLATELET COUNT 208 K/uL (156-360); RBC DIS.WIDTH-CV 18.6 % (11.8-14.6); RBC DIS.WIDTH-SD 53.6 % (39-53); RED BLOOD COUNT 3.35 M/uL (3.80-5.20)
[2018-02-19 03:42] VITALS: BP 103/63
[2018-02-19 07:28] VITALS: BP 107/66
[2018-02-19 12:09] VITALS: BP 108/57
== END 2018-02-19 19:45 | DRG 956 ==
LOC: EME → EDBD 03:56 → EME 03:56 → TRA 03:56 → EDOF 07:59 → 3EAST 07:59 → ENRESERV 08:01 → 3EAST 15:11
PROVIDERS: Emergency Medicine; Family Medicine; Hospitalist; Internal Medicine; Internal Medicine Gastroenterology; Orthopaedic Surgery; Orthopaedic Surgery Sports Medicine; Physician Assistant
PROC: 30233N1 Transfusion of Nonautologous Red Blood Cells into Peripheral Vein, Percutaneous Approach (ICD-10-PCS; principal; 2018-02-12)
PROC: 30233K1 Transfusion of Nonautologous Frozen Plasma into Peripheral Vein, Percutaneous Approach (ICD-10-PCS; 2018-02-13)
PROC: 0QS734Z Reposition Left Upper Femur with Internal Fixation Device, Percutaneous Approach (ICD-10-PCS; 2018-02-18)
DX: S72.142A Displaced intertrochanteric fracture of left femur, initial encounter for closed fracture (principal); D68.9 Coagulation defect, unspecified; S32.511A Fracture of superior rim of right pubis, initial encounter for closed fracture; S32.591A Other specified fracture of right pubis, initial encounter for closed fracture; W01.0XXA Fall on same level from slipping, tripping and stumbling without subsequent striking against object, initial encounter; Y93.01 Activity, walking, marching and hiking; I48.0 Paroxysmal atrial fibrillation; M32.9 Systemic lupus erythematosus, unspecified; Z87.891 Personal history of nicotine dependence; G89.29 Other chronic pain; I89.0 Lymphedema, not elsewhere classified; E03.9 Hypothyroidism, unspecified; D50.9 Iron deficiency anemia, unspecified; Z66 Do not resuscitate; I27.20 Pulmonary hypertension, unspecified; Z96.653 Presence of artificial knee joint, bilateral; Z98.84 Bariatric surgery status; I08.1 Rheumatic disorders of both mitral and tricuspid valves; J44.9 Chronic obstructive pulmonary disease, unspecified; E66.9 Obesity, unspecified; I25.2 Old myocardial infarction; Z85.51 Personal history of malignant neoplasm of bladder; R13.10 Dysphagia, unspecified; E46 Unspecified protein-calorie malnutrition; Y92.009 Unspecified place in unspecified non-institutional (private) residence as the place of occurrence of the external cause; I25.10 Atherosclerotic heart disease of native coronary artery without angina pectoris; K21.9 Gastro-esophageal reflux disease without esophagitis; M85.80 Other specified disorders of bone density and structure, unspecified site; Z79.82 Long term (current) use of aspirin; I49.3 Ventricular premature depolarization; I87.2 Venous insufficiency (chronic) (peripheral)
CPT/HCPCS: 71045; 72193; 73502; 76000; 80048; 80048 91; 80053; 81003; 82272; 83735; 83880; 84132 91; 85014; 85018; 85025; 85027; 85384; 85610; 85611; 85730; 86850; 86900; 86901; 86920; 93005; 93971; 94799; 97530 GO; 99281; 99285; C1713; C9113; J0131; J0330; J0690; J1100; J1170; J1940; J2250; J2405; J2710; J3010; J3480; J7030; J7040; J7643; P9016; P9017